=== PATIENT | male | born 1990 | race Caucasian/White ===

== ENCOUNTER 2019-09-23 22:04 | Emergency (ER) | payer SELFPAY ==
[2019-09-23 22:23] VITALS: TEMP 98; BMI 29.9
--- NOTE | 2019-09-23 22:24 | PDOC ---
History of Present Illness - General Chief Complaint: Palpitations Stated Complaint: EVALUATION Time Seen by Provider: 09/23/19 22:21 - History of Present Illness Initial Comments: 09/23/19 22:24 HPI: 29 y/o M with hx of SVT and ?pericarditis presenting with persistent tachycardia and chest pain. 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 On arrival, HR 160s and complaints of palpitations and chest tightness. He reports URI syndrome over the past 2 weeks with cough, wheezing, and increased SOB with exertion with stairs. Over the past 3-4 days his symptoms have worsened and he reports SOB with any walking across flat surfaces. He also reports left chest tightness without radiation. He deneis fever, chills, WOOD, LH, syncope, abd pain, n/v, dysuria. He reprots his HR sometimes reaches 270-300 with exertion. PMHx: as noted above ROS: as noted SHx: Denies tobacco use; no alcohol use; no rec drugs Allergies: NKDA ROS: GENERAL/CONSTITUTIONAL: No fever or chills. No weakness. HEAD, EYES, EARS, NOSE AND THROAT: No change in vision. No ear pain or discharge. No sore throat. CARDIOVASCULAR: +shortness of breath RESPIRATORY: +cough, wheezing GASTROINTESTINAL: No nausea, vomiting, diarrhea or constipation. GENITOURINARY: No dysuria, frequency, or change in urination. MUSCULOSKELETAL: No joint or muscle swelling or pain. No neck or back pain. SKIN: No rash NEUROLOGIC: No headache, vertigo, loss of consciousness, or change in strength/ sensation. ENDOCRINE: No increased thirst. No abnormal weight change HEMATOLOGIC/LYMPHATIC: No anemia, easy bleeding, or history of blood clots. ALLERGIC/IMMUNOLOGIC: No hives or skin allergy. PE: GENERAL: Awake, alert, and fully oriented, no acute distress HEAD: No signs of trauma, normocephalic, atraumatic EYES: EOMI, sclera anicteric, conjunctiva clear ENT: Auricles normal inspection, hearing grossly normal, nares patent, oropharynx clear without exudates. Moist mucosa NECK: Normal ROM, no lymphadenopathy LUNGS: No increased work of breathing, symmetrical chest rise, clear to auscultation bilaterally, no wheezes, crackles or rhonchi HEART: tachycardic and regular rhythm, peripheral pulses 2+ and equal bilaterally. ABDOMEN: Soft, nondistended, nontender, normoactive bowel sounds. No guarding, no rebound. No masses. No CVAT MUSCULOSKELETAL: Normal inspection, FROM NEUROLOGICAL: Cranial nerves II through XII grossly intact. Normal speech, normal gait, no focal sensorimotor deficits SKIN: Warm, Dry, normal turgor, no rashes or lesions noted Past History - Past Medical History Allergies/Adverse Reactions: Allergies Allergy/AdvReac Type Severity Reaction Status Date / Time No Known Allergies Allergy Verified 09/23/19 22:18 Home Medications: Ambulatory Orders Azithromycin [Zithromax] 500 mg PO DAILY 5 Days #5 tablet 09/24/19 Cardiac Disorders: Yes (SVT in childhood) COPD: No GI Disorders: Yes (IBS) - Immunization History Immunization Up to Date: Yes - Psycho Social/Smoking Cessation Hx Smoking History: Never smoked Have you smoked in the past 12 months: No Information on smoking cessation initiated: No Hx Alcohol Use: No Drug/Substance Use Hx: No Substance Use Type: None *Physical Exam - Vital Signs Last Vital Signs Temp Pulse Resp BP Pulse Ox 98.0 F 165 H 18 117/72 100 09/23/19 22:19 09/23/19 22:19 09/23/19 22:19 09/23/19 22:19 09/23/19 22:19 ED Treatment Course - LABORATORY CBC & Chemistry Diagram: 09/23/19 22:45 09/23/19 22:45 Medical Decision Making - Medical Decision Making 09/24/19 00:20 29 y/o M with hx of SVT and ?pericarditis presenting with persistent tachycardia and chest pain associated with worsening SOB on exertion. HR 160s, AF, BP 117/72. Pe unremarkable -cbc, cmp, coags, d-dimar, bnp, trop, ekg, cxr -ivf, adenosine 09/24/19 00:25 adenosine with no effect consulted Dr acosta; recommending IV lopressor 5mg IV x2 with 25mg PO chaser if works; if not then cardizem 10mg IV with 30 PO chaser; if not then 150mg IV amio with PO chaser will admit to tele for further workup and echo in the AM 09/24/19 00:36 elevated BNP and D-dimer; however Cr 1.4; patient has received 1L bolus; will proceed with CTA and f/u with additional bolus 09/24/19 02:02 patient would like to signout AMA and not be admitted for further cardiac workup ; states he will followup with nelly in the AM CTA with no evidence of PE, but with BL pna; will treat with ceftriaxone and azithro and send 5day script for pna discussed results with patient and he understands risks of leaving AMA all questions answered Discharge - Discharge Information Problems reviewed: Yes Clinical Impression/Diagnosis: SVT (supraventricular tachycardia) Pneumonia Qualifiers: Pneumonia type: due to unspecified organism Laterality: bilateral Lung location : upper lobe of lung Qualified Code(s): J18.9 - Pneumonia, unspecified organism Condition: Guarded Disposition: AGAINST MEDICAL ADVICE - Additional Discharge Information Prescriptions: Azithromycin [Zithromax] 500 mg PO DAILY 5 Days #5 tablet - Follow up/Referral - Patient Discharge Instructions Patient Printed Discharge Instructions: DI for Pneumonia -- Adult, DI for Paroxysmal Supraventricular Tachycardia Additional Instructions: AMA: As discussed you may have undiagnosed illness or medical diagnosis that if left untreated can lead to multiple complications including, but not limited to permanent disability and . Should you reconsider you should turn to the emergency department for evaluation. Please call Dr Miranda for followup tomorrow for further evaluation Please take the prescribed antibiotics for your lung infection; Azithromax 500nmg for 5 more days - Post Discharge Activity
[2019-09-23] MEDS ORDERED: SODIUM CHLORIDE 0.9% 1000 ML INFUS.BAG IV ONE ×2 (22:25→22:47)
[2019-09-23] MEDS ORDERED: ADENOSINE 6 MG/2 ML VIAL IVPUSH ONE ×4 (22:38→23:56)
[2019-09-23 22:55] LABS: BASO % 0.6 % (0-2.0); EOS % 1.5 % (0-4.5); HEMATOCRIT 42.9 % (35.4-49); HEMOGLOBIN 14.1 GM/dL (11.7-16.9); LYMPH % 18.4 % (8-40); MCHC 32.8 g/dl (32.0-35.9); MEAN CELL VOLUME 82.3 fl (80-96); MEAN PLT VOLUME 7.9 fl (7.5-11.1); MONO % 8.5 % (3.8-10.2); PLATELET COUNT 369 K/MM3 (134-434); RBC 5.21 M/mm3 (4.00-5.60); RDW 13.9 % (11.9-15.9); WHITE BLOOD COUNT 14.9 K/mm3 (4.0-10.0)
[2019-09-23 23:17] LABS: INR 1.13 (0.83-1.09); PROTHROMBIN TIME (PATIENT) 13.3 SEC (9.7-13.0)
[2019-09-23 23:20] LABS: ACTIVATED PTT 32.1 SECONDS (25.2-36.5)
[2019-09-23 23:30] LABS: ALBUMIN 3.3 g/dl (3.4-5.0); BILIRUBIN,TOTAL 0.4 mg/dL (0.2-1); BLOOD UREA NITROGEN 25.6 mg/dL (7-18); CALCIUM 8.8 mg/dL (8.5-10.1); CREATININE 1.4 mg/dL (0.55-1.3); N-TERMINAL BNP 2599.2 pg/ml (5-125); POTASSIUM 4.1 mmol/L (3.5-5.1); TOT PROT 6.3 g/dl (6.4-8.2)
--- NOTE | 2019-09-23 23:42 | PDOC ---
Documentation entered by Patricia Boswell SCRIBE, acting as scribe for Soila Boswell DO. Soila Boswell DO: This documentation has been prepared by the shanae, Patricia Boswell SCRIBE, under my direction and personally reviewed by me in its entirety. I confirm that the documentation accurately reflects all work, treatment, procedures, and medical decision making performed by me. Attending Attestation - Resident Resident Name: Joan Archibald - ED Attending Attestation I have performed the following: I have examined & evaluated the patient, The case was reviewed & discussed with the resident, I agree w/resident's findings & plan, Exceptions are as noted - HPI HPI: 09/23/19 23:38 29yo male with hx of svt presents from urgent care for eval of svt and tachycardia. States the svt has been happening since he was little. States he follows with dr. villegas, but hasn't seen him x 3 years. States he has been resistent to meds in the past and usually is able to rest and control his svt without interventions. Pt states he feels mild palpitations, no cp/sob. Pt arrives diaphoretic. - Physicial Exam PE: 09/23/19 23:39 Gen: aaox3, tachy, diaphoretic heent: eomi, mmm neck: supple heart: +s1s2 tachy lungs: cta b/l abd: soft, nt/nd +bs ext: no c/c/e - Critical Care Time Total Critical Care Time: 60 Critical Care Statement: The care of this patient involved high complexity decision making to prevent further life threatening deterioration of the patient 's condition and/or to evaluate & treat vital organ system(s) failure or risk of failure. - Medical Decision Making 09/23/19 23:40 a/p: 29yo male with svt - bouncing between sinus tach and svt -will send labs, ivf hydraiton -will give adenosine -pt called in by Dr. Vazquez -pt brought in a cxr disk for his cxr that shows cardiomegaly -will monitor on tele 09/23/19 23:41 adenosine 6mg given without a response adenosine 12mg given with only small break in svt to 130s from 160s then return to svt 09/23/19 23:57 trop neg bnp >2000 09/24/19 00:47 resident discussed the case with Dr. Vazquez who recommends lopressor iv x 2 doses, if that doesn't work cardizem, and if that doesn't work then amio 09/24/19 00:48 pt currently asymptomatic after 1 dose lopressor HR 150s 09/24/19 01:02 elevated dimer will order cta chest 09/24/19 01:15 pt now states he wants to sign out AMA states he does not have insurance 09/24/19 01:15 pt states now willing to stay for ct 09/24/19 01:55 cta neg for pe, but pt with b/l pna will send cultures will add abx 09/24/19 02:[address] findings discussed pna pt with coughing that started the tachycardia will start abx pt states he still does not want to stay overnight or continue treatment for svt /tachycardia/pna states he wants to sign out AMA states he has an appt with a surgeon for a thrombosed hemorrhoid tomorrow and does not want to miss it states he will stop eating chocolate, caffeine, soda states he will drink lots of water and stay hydrated states he will call dr. villegas first thing in the AM to arrange for follow up and will go to the PMD states he will take all abx pt states he wants to sign out AMA Note: The patient insists on leaving the emergency dept and is signing out against medical advice. The patient understands the risks and complications that may result from the refusal of medical care and admission which includes and permanent disability. The patient has the mental capacity of understanding the risks of refusing care and is capable of making an informed decision. The patient was instructed to return to the emergency department should he change his mind regarding medical care or should his condition worsen. The patient signed the Against Medical Advice form. Heart Score/ECG Review - ECG Intrepretation Comment:: 09/23/19 23:41 svt and sinus tach at 162, t wave inversions inferior and lateral leads, abnl ekg
[2019-09-24] MEDS ORDERED: ADENOSINE 6 MG/2 ML VIAL IVPUSH ONE (00:12)
[2019-09-24] MEDS ORDERED: METOPROLOL TARTRATE 5 MG/5 ML VIAL IVPUSH ONE ×2 (00:27→00:47)
[2019-09-24] MEDS ORDERED: METOPROLOL TARTRATE 5 MG/5 ML VIAL ONE ×2 (00:35→00:53)
[2019-09-24] MEDS ORDERED: HYDROCORTISONE 2.5% TOPICAL CREAM 30 GM TUBE TP SCH (01:00)
[2019-09-24] MEDS ORDERED: HYDROCORTISONE 2.5% TOPICAL CREAM 30 GM TUBE TP ONE (01:00)
[2019-09-24 01:06] VITALS: BP 117/61; PULSE 151
[2019-09-24] MEDS ORDERED: SODIUM CHLORIDE 1,000 ML IV STA (01:38)
[2019-09-24] MEDS ORDERED: dilTIAZem HCL 50 MG/10 ML - 10 ML VIAL IVPUSH ONE (01:44)
[2019-09-24] MEDS ORDERED: CEFTRIAXONE 1 GM in DEXTROSE 5%-WATER - 100 ML IVPB ONE (02:00)
[2019-09-24] MEDS ORDERED: AZITHROMYCIN IVPB 500 MG in DEXTROSE 5%-WATER - 250 ML IVPB ONE (02:00)
[2019-09-24] MEDS ORDERED: CEFTRIAXONE 1 GM/50 ML BAG ONE (02:51)
[2019-09-24] MEDS ORDERED: AZITHROMYCIN IVPB 500 MG/250 ML BAG IVPB ONE (02:51)
--- NOTE | 2019-09-24 14:01 | EKG ---
Test Reason : Blood Pressure : / mmHG Vent. Rate : 162 BPM Atrial Rate : 162 BPM P-R Int : 118 ms QRS Dur : 088 ms QT Int : 316 ms P-R-T Axes : 000 078 257 degrees QTc Int : 518 ms SINUS TACHYCARDIA NONSPECIFIC ST AND T WAVE ABNORMALITY ABNORMAL ECG Confirmed by JAYJAY CAMEJO MD ([id number]) on 09/24/2019 2:00:41 PM Referred By: Confirmed By:JAYJAY CAMEJO MD
== END 2019-09-24 03:57 | disposition left against medical advice (07) ==
LOC: JER 22:04
PROC: 3E0337Z Introduction of Electrolytic and Water Balance Substance into Peripheral Vein, Percutaneous Approach (ICD-10-PCS; principal; 2019-09-23)
PROC: 3E03329 Introduction of Other Anti-infective into Peripheral Vein, Percutaneous Approach (ICD-10-PCS; 2019-09-23)
PROC: 3E03329 Introduction of Other Anti-infective into Peripheral Vein, Percutaneous Approach (ICD-10-PCS; 2019-09-23)
PROC: 3E033GC Introduction of Other Therapeutic Substance into Peripheral Vein, Percutaneous Approach (ICD-10-PCS; 2019-09-23)
PROC: 3E033GC Introduction of Other Therapeutic Substance into Peripheral Vein, Percutaneous Approach (ICD-10-PCS; 2019-09-23)
DX: I47.1 Supraventricular tachycardia (principal); J18.9 Pneumonia, unspecified organism
CPT/HCPCS: 36415; 71275-TC; 80053; 82550; 83735; 83880; 84439; 84443; 84481; 84484; 85025; 85379; 85610; 85730; 93005; 93010; 99285-25; J7030

== ENCOUNTER 2019-10-22 23:06 | Emergency (ER) | payer OTHER ==
[2019-10-22 23:26] VITALS: TEMP 95.5; BMI 32.1
[2019-10-22] MEDS ORDERED: SODIUM CHLORIDE 0.9% 500 ML INFUS.BAG IV ONE (23:32)
[2019-10-22] MEDS ORDERED: FAMOTIDINE 20 MG/50 ML IVPB 20 MG/50 ML MG IVPB ONE ×2 (23:32→23:40)
[2019-10-22] MEDS ORDERED: ACETAMINOPHEN 1000 MG/100 ML VIAL (NON FORMULARY) IVPB ONE (23:32)
[2019-10-22] MEDS ORDERED: ONDANSETRON 4 MG/2 ML VIAL IVPUSH ONE (23:32)
[2019-10-22] MEDS ORDERED: MAG HYDROX/AL HYDROX/SIMETH -MYLANTA- ORAL SUSPENSION PO ONE (23:32)
[2019-10-22] MEDS ORDERED: ACETAMINOPHEN INJECTION 100 ML IVPB ONE (23:39)
[2019-10-22] MEDS ORDERED: ONDANSETRON 4 MG/2 ML VIAL ONE (23:40)
[2019-10-22] MEDS ORDERED: MAG HYDROX/AL HYDROX/SIMETH 30 ML UNIT-DOSE CUP ONE (23:40)
--- NOTE | 2019-10-22 23:48 | PDOC ---
History of Present Illness - General Chief Complaint: Chest Pain Stated Complaint: ABD PAIN,CHEST PAIN Time Seen by Provider: 10/22/19 23:16 - History of Present Illness Initial Comments: Mr. Celestin is a 29 y/o male with PMH significant for SVT and IBS, presenting today with tachycardia, epigastric abdominal pain, chest pain. Reports that he has had SVT his entire life, and was experiencing tachycardia for the past month. He was diagnosed with pneumonia a couple weeks ago, and given a z-pac and clarithromycin, after which he began having epigastric abdominal pain. Describes the pain as a pressure like sensation, associated with nausea but no vomiting. The past week he has also been experiencing left sided chest pain. Describes it as a squeezing like sensation. Today, he felt that the pain got worse and he started feeling lightheaded and decided to come to the ED. Reports associated shortness of breath on exertion. He saw his counter tender today, who stated that he needed to undergo an ablation in the next 10 days. Based on hx from pt, family, and chart review, rhythm appears to be refractory to medications over the past couple of years. SocHx: no etoh/drugs/smoking. no caffeine. no new stressors. Meds: metoprolol Cards: Dr. Miranda EP: Dr. Edson Wheat, [facility] [phone], cell [phone] Past History - Past Medical History Allergies/Adverse Reactions: Allergies Allergy/AdvReac Type Severity Reaction Status Date / Time No Known Allergies Allergy Verified 10/22/19 23:26 Home Medications: Ambulatory Orders Azithromycin [Zithromax] 500 mg PO DAILY 10/22/19 Clarithromycin [Clarithromycin ER] 500 mg PO BID 10/22/19 Metoprolol Succinate [Toprol Xl] 25 mg PO BID 10/22/19 Cardiac Disorders: Yes (SVT in childhood) COPD: No GI Disorders: Yes (IBS) - Immunization History Immunization Up to Date: Yes - Psycho Social/Smoking Cessation Hx Smoking History: Never smoked Have you smoked in the past 12 months: No Hx Alcohol Use: No Drug/Substance Use Hx: No Substance Use Type: None Review of Systems - Review of Systems Comments:: GENERAL/CONSTITUTIONAL: No fever or chills. No weakness._ HEAD, EYES, EARS, NOSE AND THROAT: No change in vision. No change in hearing. No sore throat._ CARDIOVASCULAR: Reports chest pain and shortness of breath. RESPIRATORY: Denies cough, hemoptysis_ GASTROINTESTINAL: Reports abdominal pain. Reports nausea and vomiting. No diarrhea or constipation._ GENITOURINARY: No dysuria, frequency, or change in urination._ MUSCULOSKELETAL: No joint or muscle swelling or pain. No neck or back pain._ SKIN: No rash_ NEUROLOGIC: Reports lightheadedness. No headache, vertigo, loss of consciousness , or change in strength/sensation._ ENDOCRINE: No increased thirst. No abnormal weight change_ HEMATOLOGIC/LYMPHATIC: No anemia, easy bleeding, or history of blood clots._ ALLERGIC/IMMUNOLOGIC: No hives or skin allergy. *Physical Exam - Vital Signs Last Vital Signs Temp Pulse Resp BP Pulse Ox 95.5 F L 135 H 18 103/74 98 10/22/19 23:24 10/23/19 01:14 10/23/19 01:14 10/23/19 01:14 10/23/19 01:14 - Physical Exam GENERAL: Awake, alert, and oriented to person/place/time, in no acute distress_ HEAD: No signs of trauma, normoc ephalic, atraumatic _ EYES: PERRLA, EOMI, sclera anicteric, conjunctiva clear_ ENT: Hearing grossly normal, nares patent, oropharynx clear without exudates. No uvular deviation. Moist mucosa_ NECK: Normal ROM, supple, no lymphadenopathy, JVD, or masses_ LUNGS: No distress, speaks in full sentences, clear to auscultation bilaterally _ HEART: Tachycardia, normal S1 and S2, no murmurs appreciated, peripheral pulses normal and equal bilaterally._ ABDOMEN: Soft, epigastric TTP, normoactive bowel sounds. No guarding, no rebound. No masses_ EXTREMITIES: Normal inspection, Normal range of motion, no edema. No clubbing or cyanosis_ NEUROLOGICAL: Cranial nerves II through XII grossly intact. Normal speech, normal gait, no focal sensorimotor deficits _ SKIN: Warm, Dry, normal turgor, no rashes or lesions noted_ ED Treatment Course - LABORATORY CBC & Chemistry Diagram: 10/22/19 23:25 10/22/19 23:25 - ADDITIONAL ORDERS Additional order review: Laboratory Results 10/22/19 10/22/19 10/22/19 23:25 23:25 23:25 Sodium 143 Potassium 3.8 Chloride 113 H Carbon Dioxide 23 Anion Gap 8 BUN 26.0 H Creatinine 1.1 Est GFR (CKD-EPI)AfAm 106.06 Est GFR (CKD-EPI)NonAf 91.51 Random Glucose 122 H Lactic Acid 2.3 H* Calcium 8.5 Phosphorus Cancelled Magnesium Total Bilirubin 0.6 AST 60 H ALT 113 H Alkaline Phosphatase 78 Creatine Kinase Troponin I Total Protein 5.5 L Albumin 3.1 L Lipase TSH Cancelled 10/22/19 23:25 Sodium Potassium Chloride Carbon Dioxide Anion Gap BUN Creatinine Est GFR (CKD-EPI)AfAm Est GFR (CKD-EPI)NonAf Random Glucose Lactic Acid Calcium Phosphorus 5.0 H Magnesium 2.0 Total Bilirubin AST ALT Alkaline Phosphatase Creatine Kinase 102 Troponin I < 0.02 Total Protein Albumin Lipase 91 TSH 5.02 H D 10/22/19 23:25 RBC 4.86 MCV 81.3 MCHC 32.4 RDW 14.1 MPV 8.1 Neutrophils % 54.7 D Lymphocytes % 31.8 D Monocytes % 10.0 Eosinophils % 2.7 Basophils % 0.8 - RADIOLOGY Radiology Studies Ordered: Category Date Time Status CHEST X-RAY PORTABLE* [RAD] Stat Radiology 10/22/19 23:26 Completed - Medications Given in the ED: ED Medications Discontinued Medications Generic Name Dose Route Start Last Admin Trade Name Freq PRN Reason Stop Dose Admin Acetaminophen 1,000 mg 10/22/19 23:32 10/22/19 23:59 Ofirmev Injection - IVPB 10/22/19 23:33 1,000 mg ONCE ONE Administration Al Hydroxide/Mg Hydroxide 30 ml 10/22/19 23:32 10/22/19 23:48 Mylanta Suspension - PO 10/22/19 23:33 30 ml ONCE ONE Administration Famotidine/Sodium Chloride 20 mg in 50 mls @ 100 mls/hr 10/22/19 23:32 23:48 Pepcid 20 Mg Premixed Ivpb - IVPB 10/23/19 00:01 100 mls/hr ONCE ONE Administration Ondansetron HCl 4 mg 10/22/19 23:32 10/22/19 23:48 Zofran Injection IVPUSH 10/22/19 23:33 4 mg ONCE ONE Administration Sodium Chloride 1,000 ml 10/22/19 23:32 10/22/19 23:48 Normal Saline - IV 10/22/19 23:33 1,000 ml ONCE ONE Administration Medical Decision Making - Medical Decision Making 10/22/19 23:47 29 y/o male hx of SVT and IBS, presenting today with 1 month of tachycardia, 2 weeks of squeezing chest pain and pressure epigastric pain, worse today and associated with dizziness today. -cbc, cmp, lipase, lactic, mg, phos, tsh -ekg, cxr, trop -ua, ucx -fluids, tylenol, zofran, pepcid, maalox 10/23/19 00:27 EKG shows sinus tachycardia, 137 bpm, no ST elevation/depression, MT 134, QTc 431, QRS 100. 10/23/19 00:44 CXR shows cardiomegaly, otherwise no acute intra thoracic pathology. Labs reviewed. Laboratory Last Values WBC 12.9 K/mm3 (4.0-10.0) H 10/22/19 23:25 RBC 4.86 M/mm3 (4.00-5.60) 10/22/19 23:25 Hgb 12.8 GM/dL (11.7-16.9) 10/22/19 23:25 Hct 39.5 % (35.4-49) 10/22/19 23:25 MCV 81.3 fl (80-96) 10/22/19 23:25 MCH 26.3 pg (25.7-33.7) 10/22/19 23:25 MCHC 32.4 g/dl (32.0-35.9) 10/22/19 23:25 RDW 14.1 % (11.9-15.9) 10/22/19 23:25 Plt Count 318 K/MM3 (134-434) 10/22/19 23:25 MPV 8.1 fl (7.5-11.1) 10/22/19 23:25 Absolute Neuts (auto) 7.1 K/mm3 (1.5-8.0) 10/22/19 23:25 Neutrophils % 54.7 % (42.8-82.8) D 10/22/19 23:25 Lymphocytes % 31.8 % (8-40) D 10/22/19 23:25 Monocytes % 10.0 % (3.8-10.2) 10/22/19 23:25 Eosinophils % 2.7 % (0-4.5) 10/22/19 23:25 Basophils % 0.8 % (0-2.0) 10/22/19 23:25 Nucleated RBC % 0 % (0-0) 10/22/19 23:25 Sodium 143 mmol/L (136-145) 10/22/19 23:25 Potassium 3.8 mmol/L (3.5-5.1) 10/22/19 23:25 Chloride 113 mmol/L (98-107) H 10/22/19 23:25 Carbon Dioxide 23 mmol/L (21-32) 10/22/19 23:25 Anion Gap 8 MMOL/L (8-16) 10/22/19 23:25 BUN 26.0 mg/dL (7-18) H 10/22/19 23:25 Creatinine 1.1 mg/dL (0.55-1.3) 10/22/19 23:25 Est GFR (CKD-EPI)AfAm 106.06 10/22/19 23:25 Est GFR (CKD-EPI)NonAf 91.51 10/22/19 23:25 Random Glucose 122 mg/dL (74-106) H 10/22/19 23:25 Lactic Acid 2.3 mmol/L (0.4-2.0) H* 10/22/19 23:25 Calcium 8.5 mg/dL (8.5-10.1) 10/22/19 23:25 Phosphorus 5.0 mg/dL (2.5-4.9) H 10/22/19 23:25 Magnesium 2.0 mg/dL (1.8-2.4) 10/22/19 23:25 Total Bilirubin 0.6 mg/dL (0.2-1) 10/22/19 23:25 AST 60 U/L (15-37) H 10/22/19 23:25 ALT 113 U/L (13-61) H 10/22/19 23:25 Alkaline Phosphatase 78 U/L (45-117) 10/22/19 23:25 Creatine Kinase 102 U/L (26-308) 10/22/19 23:25 Troponin I < 0.02 ng/ml (0.00-0.05) 10/22/19 23:25 Total Protein 5.5 g/dl (6.4-8.2) L 10/22/19 23:25 Albumin 3.1 g/dl (3.4-5.0) L 10/22/19 23:25 Lipase 91 U/L (73-393) 10/22/19 23: TSH 5.02 uIU/ml (0.358-3.74) H D 10/22/19 23:25 10/23/19 01:03 D/w Dr. Baumann who is covering for Dr. Wheat. States that the patient can return to [facility] to be admitted in a couple of days for the ablation procedure. Will plan to d/c home with strict return precautions. All questions answered. Patient and family verbalized understanding and agreement with plan. Discharge - Discharge Information Problems reviewed: Yes Clinical Impression/Diagnosis: Tachycardia Condition: Stable Disposition: HOME - Admission No - Follow up/Referral Referrals: Ramin Chopra MD [Primary Care Provider] - - Patient Discharge Instructions Patient Printed Discharge Instructions: DI for Tachycardia Additional Instructions: Please make a follow up appointment with your counter tender Dr. Wheat at [facility] next week. Please continue taking your medications as prescribed. If you experience any new, worsening, or concerning symptoms, including chest pain, shortness of breath, headache, dizziness, severe nausea/vomiting, or any other concerns, please return to the emergency department. - Post Discharge Activity
[2019-10-22 23:49] LABS: BASO % 0.8 % (0-2.0); EOS % 2.7 % (0-4.5); HEMATOCRIT 39.5 % (35.4-49); HEMOGLOBIN 12.8 GM/dL (11.7-16.9); LYMPH % 31.8 % (8-40); MCH 26.3 pg (25.7-33.7); MCHC 32.4 g/dl (32.0-35.9); MEAN CELL VOLUME 81.3 fl (80-96); MEAN PLT VOLUME 8.1 fl (7.5-11.1); NEUT % 54.7 % (42.8-82.8); PLATELET COUNT 318 K/MM3 (134-434); RBC 4.86 M/mm3 (4.00-5.60); RDW 14.1 % (11.9-15.9); WHITE BLOOD COUNT 12.9 K/mm3 (4.0-10.0)
[2019-10-23 00:19] LABS: ALBUMIN 3.1 g/dl (3.4-5.0); BILIRUBIN,TOTAL 0.6 mg/dL (0.2-1); CALCIUM 8.5 mg/dL (8.5-10.1); CREATININE 1.1 mg/dL (0.55-1.3); POTASSIUM 3.8 mmol/L (3.5-5.1); TOT PROT 5.5 g/dl (6.4-8.2)
[2019-10-23 00:33] LABS: LIPASE 91 U/L (73-393)
--- NOTE | 2019-10-23 00:55 | PDOC ---
Documentation entered by Haily Sigala SCRIBE, acting as scribe for Jayshree Weaver MD. Jayshree Weaver MD: This documentation has been prepared by the Jovon jolly Brenda, SCRIBE, under my direction and personally reviewed by me in its entirety. I confirm that the documentation accurately reflects all work, treatment, procedures, and medical decision making performed by me. Attending Attestation - Resident Resident Name: Joshua Villanueva - ED Attending Attestation I have performed the following: I have examined & evaluated the patient, The case was reviewed & discussed with the resident, I agree w/resident's findings & plan, Exceptions are as noted - HPI HPI: 10/22/19 23:33 Mr. Celestin is a 29 year old male with a past medical history of SVT and IBS who presents to the ED for 2 weeks of progressively worsening epigastric abdominal pain. Patient states his HPI began last year ago when he had an atypical pneumonia which was not properly treated. He was seen in the emergency department ultimately in August and diagnosed with pneumonia based on CT scan. He was started on ceftriaxone and nasal throat, ultimately discharged on a Zithromax. Patient states that he felt a bit better on his medication, did note some GI upset. He was seen in follow-up in September when he began to feel worse once he discontinued the azithromycin. His chest x-ray was significant for persistent pneumonia. He was started on clarithromycin. He has now been on clarithromycin almost 2 weeks and since the initiation of this medication he has noted severe GI discomfort. He feels a sensation of early satiety, epigastric pain, nausea When he has the symptoms it worsens his tachycardia Of note, patient has noticed for the past 4 to 6 weeks and elevated heart rate even at rest He is currently on Metoprolol Was actually seen by an electrophysiologis today (plan is for ablation within in a week) Pt has been trialed on multiple medications with no resolution of his tachycardia h jacobo report intermittent squeezing chest pain, dizziness. The patient denies shortness of breath. Denies fever, chills, diarrhea and constipation. Denies dysuria, frequency, urgency and hematuria. Denies any other symptoms. Allergies: NKA Social history: No reported hx of tobacco use, alcohol use or illicit drug use. 10/23/19 00:41 - Physicial Exam PE: 10/22/19 23:39 GENERAL: The patient is in no acute distress, speaking in clear complete sentences. ENT: Ears normal, nares patent, oropharynx clear without exudates. Moist mucous membranes. NECK: Normal range of motion, supple, no nuchal rigidity LUNGS: Breath sounds equal, clear to auscultation bilaterally. No wheezes, and no crackles. HEART: Tachycardic, regular, no murmurs appreciated ABDOMEN: Soft, nontender, normoactive bowel sounds. No guarding, no rebound. Epigastric tenderness to palpation EXTREMITIES: Normal range of motion, no edema. NEUROLOGICAL: Cranial nerves II through XII grossly intact. Normal speech. No focal neurological deficits. SKIN: Warm, Dry, normal turgor, no rashes or lesions noted. 10/23/19 00:50 - Medical Decision Making 10/23/19 00:50 29-year-old male, history of SVT presenting to the emergency department secondary to nausea, epigastric pain Patient presented tonight because of dizziness as well as chest discomfort After arrival in the emergency department he had an episode of vomiting which improved the epigastric pain and chest discomfort Pt has previously been seen in this ER Multiple attempts made to control pt heart rate - Adenosine, Metoprolol, Cardizem (unsuccessful) We will do basic lab EKG We will contact cardiology Will contact patient's competency evaluated nurse aide EKG: Sinus tachycardia, rate of 137 bpm, axis normal, T wave inversion in lead I , aVL, V4 through V6, abnormal P axis 10/23/19 00:54 Laboratory Tests 10/22/19 10/22/19 10/22/19 23:25 23:25 23:25 WBC 12.9 H Hgb 12.8 Hct 39.5 Plt Count 318 BUN 26.0 H Creatinine 1.1 Creatine Kinase 102 Troponin I < 0.02 Pt states he is feeling better Pt case discussed with his [facility] EP attending Pt could be discharged to home and can follow up next week Case discussed with Dr Vazquez Pt would like to going home Will follow up with cardiology Return to the ER for any other concerns or complaints
[2019-10-23 01:15] VITALS: BP 103/74; PULSE 135
--- NOTE | 2019-10-23 10:48 | EKG ---
Test Reason : Blood Pressure : / mmHG Vent. Rate : 137 BPM Atrial Rate : 137 BPM P-R Int : 134 ms QRS Dur : 100 ms QT Int : 286 ms P-R-T Axes : 000 053 192 degrees QTc Int : 431 ms SUPRAVENTRICULAR TACHYCARDIA ABNORMAL ECG WHEN COMPARED WITH ECG OF 23-SEP-2019 22:29, T WAVE INVERSION LESS EVIDENT IN INFERIOR LEADS Confirmed by JAYJAY CAMEJO MD ([id number]) on 10/23/2019 10:48:37 AM Referred By: Confirmed By:JAYJAY CAMEJO MD
== END 2019-10-23 01:44 | disposition home or self-care (01) ==
LOC: JER 23:06
PROC: 3E033GC Introduction of Other Therapeutic Substance into Peripheral Vein, Percutaneous Approach (ICD-10-PCS; principal; 2019-10-22)
PROC: 3E033GC Introduction of Other Therapeutic Substance into Peripheral Vein, Percutaneous Approach (ICD-10-PCS; 2019-10-22)
PROC: 3E033NZ Introduction of Analgesics, Hypnotics, Sedatives into Peripheral Vein, Percutaneous Approach (ICD-10-PCS; 2019-10-22)
DX: R00.0 Tachycardia, unspecified (principal)
CPT/HCPCS: 36415; 71045-TC-FY; 80053; 82550; 83605; 83690; 83735; 84100; 84443; 84484; 85025; 93005; 93010; 99285-25; J0131

== ENCOUNTER 2019-11-10 13:13 | Emergency (ER) | payer OTHER ==
[2019-11-10 13:22] VITALS: TEMP 98.5; BMI 32.1
--- NOTE | 2019-11-10 13:55 | PDOC ---
*Physical Exam - Vital Signs Last Vital Signs Temp Pulse Resp BP Pulse Ox 98.5 F 107 H 20 124/84 97 11/10/19 13:16 11/10/19 13:16 11/10/19 13:16 11/10/19 13:16 11/10/19 13:16 - Physical Exam 11/10/19 13:55 The patient was examined by [SHIN Caruso] under my direct supervision. I personally evaluated the patient. I concur with the above findings and the plan of care. ED Treatment Course - LABORATORY CBC & Chemistry Diagram: 11/10/19 14:40 11/10/19 14:40 Discharge - Discharge Information Problems reviewed: Yes Clinical Impression/Diagnosis: Thrombophlebitis Condition: Improved Disposition: HOME - Follow up/Referral Referrals: Ramin Chopra MD [Primary Care Provider] - - Patient Discharge Instructions Patient Printed Discharge Instructions: DI for Superficial Thrombophlebitis Additional Instructions: Please apply a warm-hot soaks to the affected area 3 times a day for 15 minutes x 3 days. Also elevate the right arm as much as possible to help decrease swelling If area becomes more red or painful despite today's ER visit, ultrasound findings, administration of IV antibiotics and follow-up recommendations, please return to the nearest ER - Post Discharge Activity
--- NOTE | 2019-11-10 14:15 | PDOC ---
History of Present Illness - General Chief Complaint: Wound Stated Complaint: CELLULITIS Time Seen by Provider: 11/10/19 13:37 - History of Present Illness Initial Comments: 11/10/19 14:12 CHIEF COMPLAINT: swelling/redness to arm HISTORY OF PRESENT ILLNESS: 29 yo M with hx of SVT (s/p emergency cardiac ablation at [facility], followed by Drs. Wheat and Ruth) presents to ED with R forearm redness and pain. Patient reports going to the ER on Friday prior to ablation for overnight monitoring due to worsening chest pain. In the ED he had an IV placed to the right antecubital and was not removed for 2.5 days until he was discharged on . 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 He reports now feeling pain/redness/tenderness to R forearm and significant tenderness to R AC with extension of R elbow. Patient denies fevers , chills, N/V/D. No recent travel or sick contacts. PAST MEDICAL HISTORY: SVT FAMILY HISTORY: Denies SOCIAL HISTORY: Denies tobacco, alcohol, illicit drug use. SURGICAL HISTORY: cardiac ablation ALLERGIES: No known drug allergies REVIEW OF SYSTEMS General/Constitutional: Denies fever or chills. Denies weakness, weight change. HEENT: Denies change in vision. Denies ear pain or discharge. Denies sore throat. Cardiovascular: Denies chest pain or shortness of breath. Respiratory: Denies cough, wheezing, or hemoptysis. Gastrointestinal: Denies nausea, vomiting, diarrhea or constipation. Denies rectal bleeding. Genitourinary: Denies dysuria, frequency, or change in urination. Musculoskeletal: Denies joint or muscle swelling or pain. Denies neck or back pain. Skin: Redness, tenderness, swelling to R arm. Neurologic: Denies headache, vertigo, loss of consciousness, or loss of sensation. Psychiatric: Denies depression or anxiety. PHYSICAL EXAM General Appearance: Well-appearing, appropriately dressed. No apparent distress. HEENT: EOMI, PERRLA, normal ENT inspection, normal voice, TMs normal, pharynx normal. No conjunctival pallor. No photophobia, scleral icterus. Neck: Supple. Trachea midline. No tenderness, rigidity, carotid bruit, stridor , lymphadenopathy, or thyromegaly. Respiratory/Chest: Lungs CTAB. No shortness of breath, chest tenderness, respiratory distress, accessory muscle use. No crackles, rales, rhonchi, stridor , wheezing, dullness Cardiovascular: RRR. S1, S2. No JVD, murmur, bradycardia, tachycardia. Vascular Pulses: Dorsalis-Pedis (R): 2+, Dorsalis-Pedis (L): 2+ Gastrointestinal/Abdominal: Normal bowel sounds. Abdomen soft, non-distended. No tenderness or rebound tenderness. No organomegaly, pulsatile mass, guarding , hernia, hepatomegaly, splenomegaly. Lymphatic: No adenopathy, tenderness. Musculoskeletal/Extremities: Normal inspection. FROM of all extremities, normal capillary refill. Pelvis Stable. No CVA tenderness. No tenderness to extremities, pedal edema, swelling, erythema or deformity. Integumentary: Erythema/TTP to RAC with point tenderness over site of previous IV placement. Erythema/warmth/tenderness extending into to R forearm. Appropriate color, dry, warm. No cyanosis, jaundice or rash. 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 Fully oriented, alert. Appropriate mood/affect. Motor strength 5/5. No appreciable EOM palsy, facial droop or sensory deficit. Past History - Past Medical History Allergies/Adverse Reactions: Allergies Allergy/AdvReac Type Severity Reaction Status Date / Time No Known Allergies Allergy Verified 11/10/19 13:15 Home Medications: Ambulatory Orders Azithromycin [Zithromax] 500 mg PO DAILY 10/22/19 Clarithromycin [Clarithromycin ER] 500 mg PO BID 10/22/19 Metoprolol Succinate [Toprol Xl] 25 mg PO BID 10/22/19 Cardiac Disorders: Yes (SVT) COPD: No GI Disorders: Yes (IBS) - Surgical History Cardiac Surgery: Yes (cardiac ablation) - Immunization History Immunization Up to Date: Yes - Psycho Social/Smoking Cessation Hx Smoking History: Never smoked Have you smoked in the past 12 months: No Information on smoking cessation initiated: No Hx Alcohol Use: No Drug/Substance Use Hx: No Substance Use Type: None *Physical Exam - Vital Signs Last Vital Signs Temp Pulse Resp BP Pulse Ox 98.5 F 107 H 20 124/84 97 11/10/19 13:16 11/10/19 13:16 11/10/19 13:16 11/10/19 13:16 11/10/19 13:16 ED Treatment Course - LABORATORY CBC & Chemistry Diagram: 11/10/19 14:40 11/10/19 14:40 Medical Decision Making - Medical Decision Making 11/10/19 14:29 29 yo M with hx of SVT (s/p emergency cardiac ablation at [facility], followed by Drs. Wheat and Ruth) presents to ED with R forearm redness and pain -labs, blood cx -elbow/forearm xray -US r/o DVT 11/10/19 17:17 Case discussed in detail with oncoming emergency provider Leanna including history, physical exam and ancillary studies. In brief, this patient is being seen in the ED for a chief complaint of: Pending results: US Plan for disposition as follows: dc after dalvance Oncoming JOSE Ram has assumed care for the patient and will complete the evaluation and treatment. Discharge - Discharge Information Problems reviewed: Yes Clinical Impression/Diagnosis: Thrombophlebitis Condition: Improved Disposition: HOME - Follow up/Referral Referrals: Ramin Chopra MD [Primary Care Provider] - - Patient Discharge Instructions Patient Printed Discharge Instructions: DI for Superficial Thrombophlebitis Additional Instructions: Please apply a warm-hot soaks to the affected area 3 times a day for 15 minutes x 3 days. Also elevate the right arm as much as possible to help decrease swelling If area becomes more red or painful despite today's ER visit, ultrasound findings, administration of IV antibiotics and follow-up recommendations, please return to the nearest ER - Post Discharge Activity
[2019-11-10 15:19] LABS: BASO % 1.2 % (0-2.0); EOS % 3.4 % (0-4.5); HEMATOCRIT 45.5 % (35.4-49); HEMOGLOBIN 14.9 GM/dL (11.7-16.9); LYMPH % 29.6 % (8-40); MCH 25.8 pg (25.7-33.7); MCHC 32.7 g/dl (32.0-35.9); MONO % 8.6 % (3.8-10.2); NEUT % 57.2 % (42.8-82.8); PLATELET COUNT 455 K/MM3 (134-434); RBC 5.76 M/mm3 (4.00-5.60); RDW 13.9 % (11.9-15.9); WHITE BLOOD COUNT 8.7 K/mm3 (4.0-10.0)
[2019-11-10 15:39] LABS: ALBUMIN 3.6 g/dl (3.4-5.0); BILIRUBIN,TOTAL 0.4 mg/dL (0.2-1); BLOOD UREA NITROGEN 20.4 mg/dL (7-18); CALCIUM 9.2 mg/dL (8.5-10.1); CREATININE 1.1 mg/dL (0.55-1.3); POTASSIUM 4.3 mmol/L (3.5-5.1); TOT PROT 6.8 g/dl (6.4-8.2)
[2019-11-10] MEDS ORDERED: DALBAVANCIN HCL 1,500 MG in DEXTROSE 5%-WATER - 500 ML IVPB ONE (17:12)
--- NOTE | 2019-11-10 17:37 | PDOC ---
*Physical Exam - Vital Signs Last Vital Signs Temp Pulse Resp BP Pulse Ox 98.5 F 107 H 20 124/84 97 11/10/19 13:16 11/10/19 13:16 11/10/19 13:16 11/10/19 13:16 11/10/19 13:16 ED Treatment Course - LABORATORY CBC & Chemistry Diagram: 11/10/19 14:40 11/10/19 14:40 - ADDITIONAL ORDERS Additional order review: Laboratory Results 11/10/19 14:40 Sodium 143 Potassium 4.3 Chloride 108 H Carbon Dioxide 28 Anion Gap 7 L BUN 20.4 H Creatinine 1.1 Est GFR (CKD-EPI)AfAm 106.06 Est GFR (CKD-EPI)NonAf 91.51 Random Glucose 106 Calcium 9.2 Total Bilirubin 0.4 AST 46 H ALT 112 H Alkaline Phosphatase 108 Total Protein 6.8 Albumin 3.6 11/10/19 14:40 RBC 5.76 H MCV 79.0 L MCHC 32.7 RDW 13.9 MPV 8.0 Neutrophils % 57.2 Lymphocytes % 29.6 Monocytes % 8.6 Eosinophils % 3.4 Basophils % 1.2 Medical Decision Making - Medical Decision Making 11/10/19 17:35 Received signout from SHIN Caruso. Patient pending Dalvance and ultrasound of the right upper extremity to rule out DVT patient received an IV while admitted last week and developed redness to the area. Patient has no complaints of fever or chills. 11/10/19 18:56 Ultrasound shows a superficial thrombophlebitis. Specifically there is involvement of the superficial cephalic vein. No DVT is identified within the right arm. Patient will complete Dalvance and be discharged shortly Discharge - Discharge Information Problems reviewed: Yes Clinical Impression/Diagnosis: Thrombophlebitis Condition: Improved Disposition: HOME - Follow up/Referral Referrals: Ramin Chopra MD [Primary Care Provider] - - Patient Discharge Instructions Patient Printed Discharge Instructions: DI for Superficial Thrombophlebitis Additional Instructions: Please apply a warm-hot soaks to the affected area 3 times a day for 15 minutes x 3 days. Also elevate the right arm as much as possible to help decrease swelling If area becomes more red or painful despite today's ER visit, ultrasound findings, administration of IV antibiotics and follow-up recommendations, please return to the nearest ER - Post Discharge Activity
[2019-11-10] MEDS ORDERED: DALBAVANCIN HCL 500 MG VIAL (RESTRICTED TO ID ONLY) IVPB ONE (17:46)
[2019-11-10 19:56] VITALS: BP 120/82; PULSE 98
== END 2019-11-10 19:56 | disposition home or self-care (01) ==
LOC: JER 13:13
DX: I80.9 Phlebitis and thrombophlebitis of unspecified site (principal); I47.1 Supraventricular tachycardia; K58.9 Irritable bowel syndrome, unspecified
CPT/HCPCS: 36415; 73070-TC-RT-FY; 73090-TC-RT-FY; 80053; 85025; 87040; 93971; 99285-25; J0875

== ENCOUNTER 2023-03-01 16:02 | Emergency (ER) | payer OTHER ==
[2023-03-01 16:17] VITALS: BMI 34.8
[2023-03-01 16:51] VITALS: BP 127/72; PULSE 73; RESP 16; TEMP 97.2
[2023-03-01 17:59] LABS: BASO % 0.8 % (0-2.0); EOS % 2.3 % (0-4.5); HEMATOCRIT 40.8 % (35.4-49); HEMOGLOBIN 13.6 GM/dL (11.7-16.9); LYMPH % 22.5 % (8-40); MCH 24.7 pg (25.7-33.7); MCHC 33.2 g/dl (32.0-35.9); MEAN CELL VOLUME 74.3 fl (80-96); MEAN PLT VOLUME 7.7 fl (7.5-11.1); MONO % 8.2 % (3.8-10.2); NEUT % 66.2 % (42.8-82.8); PLATELET COUNT 363 10^3/uL (134-434); RDW 15.4 % (11.9-15.9); WHITE BLOOD COUNT 10.6 K/mm3 (4.0-10.0)
[2023-03-01 18:05] LABS: INR 1.06 (0.83-1.09); PROTHROMBIN TIME (PATIENT) 12.3 SEC (9.7-13.0)
[2023-03-01 18:08] LABS: ACTIVATED PTT 33.4 SECONDS (25.2-36.5)
[2023-03-01 18:23] LABS: POTASSIUM 3.6 mmol/L (3.5-5.1)
[2023-03-01 18:25] LABS: ALBUMIN 3.8 g/dl (3.4-5.0); BLOOD UREA NITROGEN 16.6 mg/dL (7-18); CALCIUM 9.3 mg/dL (8.5-10.1)
[2023-03-01 18:28] LABS: CREATININE 0.9 mg/dL (0.55-1.3)
[2023-03-01 18:30] LABS: BILIRUBIN,TOTAL 0.2 mg/dL (0.2-1); TOT PROT 7.2 g/dl (6.4-8.2)
== END 2023-03-01 18:01 | disposition home or self-care (01) ==
LOC: JER 16:02
DX: K62.89 Other specified diseases of anus and rectum (principal); K64.9 Unspecified hemorrhoids
CPT/HCPCS: 36415; 80053; 85025; 85610; 85730; 86850; 86900; 86901; 99283-25